=== PATIENT | male | born 1960 | race Caucasian/White ===

== ENCOUNTER 2024-08-18 04:08 | Observation (INO) ==
--- NOTE | 2024-08-18 04:20 | DR.EXTPAIN ---
HPI Time seen Time Seen by Provider: 08/18/24 04:19 HPI Comment HPI Comment: 64 y/o with htn and alcoholism comes in with persistently worsening lle swelling, redness and drainage x two weeks; he reports that he has been on cipro which he is reportedly taking as prescribed but hasn't seen much improv ement; some mild pain, no temperature; no acute injury. He has been shaking this morning although he says he last had a drink last night around 10 PM. PMH PMH Past Medical History: Depression, Dyslipidemia, Hypertension and Hypothyroidism Past Surgical History: Yes Surgical History: Abdominal Surgery and Tonsillectomy Family History Family Medical History: [place] Social History Do you use any recreational Drugs:: No ROS Review of Systems Constitutional: No Symptoms Reported Eyes: No Symptoms Reported ENTM: No Symptoms Reported Respiratoy: No Symptoms Reported Cardiovascular: No Symptoms Reported Gastrointestinal/Abdominal: No Symptoms Reported Genitourinary: No Symptoms Reported Neurological: See HPI Musculoskeletal: See HPI Integumentary: No Symptoms Reported Hematologic/Lymphatic: No Symptoms Reported Endocrine: No Symptoms Reported Psychiatric: No Symptoms Reported PE Vital Signs Vitals: Vital Signs Temperature 98.4 F Pulse Rate 114 Pulse Rate 113 Pulse Rate 123 Pulse Rate 111 Pulse Rate 109 Pulse Rate 109 Pulse Rate 143 Pulse Rate 112 Pulse Rate 122 Respiratory Rate 20 Respiratory Rate 26 Respiratory Rate 26 Respiratory Rate 22 Respiratory Rate 18 Respiratory Rate 31 Respiratory Rate 22 Blood Pressure 187/88 Blood Pressure 180/109 Blood Pressure 195/98 Blood Pressure 168/97 Blood Pressure 191/105 O2 Sat by Pulse Oximetry 98 O2 Sat by Pulse Oximetry 95 O2 Sat by Pulse Oximetry 96 O2 Sat by Pulse Oximetry 95 O2 Sat by Pulse Oximetry 95 O2 Sat by Pulse Oximetry 93 O2 Sat by Pulse Oximetry 93 General Limitations: No Limitations General Appearance: Alert and In No Apparent Distress Head Head Exam: Normal Inspection Eyes Eye exam: Normal Appearance ENT ENT Exam: Normal Exam Neck Neck Exam: Normal Inspection Chest Chest Inspection: Normal Inspection Respiratory Respiratory Exam: Normal Lung Sounds Bilat Cardiovascular Cardiovascular Exam: Regular Rate and Normal Rhythm Abdominal Exam Abdominal Exam: Normal Inspection, Normal Bowel Sounds and Soft Extremities Extremities Exam: Normal Inspection Back Back Exam: Normal Inspection Neurological Neurological Exam: Alert, Oriented X3 and CN II-XII Intact Psychiatric Psychiatric Exam: Normal Affect, Normal Mood and Other (shaking rue greater than lue, speech clear, good eye contact) Skin Skin Exam: Warm, Dry, Intact and Normal Color COURSE Reevaluation 1st: Worsened (Pt more confused, shaking, up putting clothing on; leg seems redder w/extension.) Consultation Call Returned: 06:55 (Dr Patrick accepts admission.) ROR Labs Reviewed Laboratory Results Reviewed?: Yes 08/18/24 04:30 08/18/24 04:30 Laboratory: WBC 6.3 X10^3/uL (3.6-10.0) 08/18/24 04:30 RBC 4.68 X10^6/uL (4.7-6.0) L 08/18/24 04:30 Hgb 15.3 g/dL (13.5-18.0) 08/18/24 04:30 Hct 43.4 % (42.0-54.0) 08/18/24 04:30 MCV 92.8 fL (80.0-100.0) 08/18/24 04:30 MCH 32.8 pg (27.0-34.0) 08/18/24 04:30 MCHC 35.3 g/dL (33.0-35.0) H 08/18/24 04:30 RDW 14.5 % (11.6-16.5) 08/18/24 04:30 Plt Count 158 X10^3/uL (150.0-450.0) 08/18/24 04:30 MPV 8.3 fL (7.4-11.0) 08/18/24 04:30 Neut % (Auto) 74.0 % (42.0-75.0) 08/18/24 04:30 Lymph % (Auto) 9.8 % (21.0-51.0) L 08/18/24 04:30 [place] % (Auto) 12.2 % (0.0-13.0) 08/18/24 04:30 Eos % (Auto) 1.0 % (0.9-2.9) 08/18/24 04:30 Baso % (Auto) 3.0 % (0.2-1.0) H 08/18/24 04:30 Neut # (Auto) 4.7 x10^3/uL (2.2-4.8) 08/18/24 04:30 Lymph # (Auto) 0.6 X10^3/uL (1.3-2.9) L 08/18/24 04:30 [place] # (Auto) 0.8 x10^3/uL (0.3-0.8) 08/18/24 04:30 Eos # (Auto) 0.1 x10^3/uL (0.0-0.2) 08/18/24 04:30 Baso # (Auto) 0.2 X10^3/uL (0.0-0.1) H 08/18/24 04:30 Absolute Nucleated RBC 0.1 /100WBC 08/18/24 04:30 ESR 42 MM/HOUR (0-15) H 08/18/24 04:30 Sodium 139 mmol/L (136-145) 08/18/24 04:30 Corrected Sodium TNP 08/18/24 04:30 Potassium 3.8 mmol/L (3.5-5.1) 08/18/24 04:30 Chloride 100 mmol/L (98-107) 08/18/24 04:30 Carbon Dioxide 26.6 mmol/L (21-32) 08/18/24 04:30 BUN 19 mg/dL (7-18) H 08/18/24 04:30 Creatinine 1.16 mg/dL (0.70-1.30) 08/18/24 04:30 Est GFR (MDRD) Af Amer > 60 (>60) 08/18/24 04:30 Est GFR (MDRD) Non-Af > 60 (>60) 08/18/24 04:30 Glucose 101 mg/dL (65-99) H 08/18/24 04:30 Calcium 9.6 mg/dL (8.5-10.1) 08/18/24 04:30 Corrected Calcium TNP 08/18/24 04:30 Total Bilirubin 0.90 mg/dL (0.2-1.0) 08/18/24 04:30 AST 43 Units/L (15-37) H 08/18/24 04:30 ALT 33 Units/L (12-78) 08/18/24 04:30 Alkaline Phosphatase 97 Units/L (46-116) 08/18/24 04:30 Total Protein 8.1 g/dL (6.4-8.2) 08/18/24 04:30 Albumin 3.7 g/dL (3.4-5.0) 08/18/24 04:30 Globulin 4.4 g/dL (2.5-4.5) 08/18/24 04:30 Albumin/Globulin Ratio 0.8 Ratio (1.1-2.1) L 08/18/24 04:30 Other Results Comments: 64 y/o alcoholic failed outpt treatment of cellulitis; admit and continue vancomycin as well as CIWA protocol. XRAY XRAY Interpreted by: Radiologist X-ray Results: ct le: 1. Moderate subcutaneous fat stranding could be related to edema or inflammation with no abscess or necrotizing fasciitis. 2. No significant bony abnormality. us: No evidence of DVT. Opioid Opioid Risk Tool Age (Jean box if 16-45): No History of Preadolescent Sexual Abuse: No Total: 0 Total Score Risk Category: Low Risk Copyright: Jesse SCHWARZ predicting aberrant behaviors Discharge Plan Diagnosis Discharge Problem: Cellulitis of left lower extremity Alcohol withdrawal Qualifiers: Complication of substance-induced condition: uncomplicated Qualified Code(s): F10.930 - Alcohol use, unspecified with withdrawal, uncomplicated Discharge Plan Patient Disposition: 09 ADMITTED INPATIENT Condition: Stable Prescriptions: No Action ciprofloxacin HCl 750 mg tablet 750 mg PO BID metoprolol succinate 50 mg tablet extended release 24 hr 50 mg PO QAM levothyroxine 200 mcg tablet 1 tab PO QDAY Health Concerns: Post Hospitalization: new medications and changes needed to prevent readmission or further decline. Pt educated and given instructions on all concerns. Plan of Treatment: Continue with present treatment and follow up plan. Pt is to keep follow up appointment as instructed and take medications as ordered. Follow ups/Referrals Follow ups/Referrals: N[facility],None [Primary Care Provider] - 3 days
[2024-08-18] MEDS: LIBRIUM PO ONE (04:31)
[2024-08-18] MEDS: VANCOMYCIN IV *PREMIX 1 G/200 ML BAG 1 G/200 ML PIGGYBACK IV SCH ×2 (04:42→10:13)
[2024-08-18 04:53] LABS: BASOPHILS # (AUTO) 0.2 X10^3/uL (0.0-0.1); EOSINOPHILS # (AUTO) 0.1 x10^3/uL (0.0-0.2); HEMATOCRIT 43.4 % (42.0-54.0); HEMOGLOBIN 15.3 g/dL (13.5-18.0); LYMPHOCYTES # (AUTO) 0.6 X10^3/uL (1.3-2.9); LYMPHOCYTES % (AUTO) 9.8 % (21.0-51.0); MEAN CORPUSCULAR HEMOGLOBIN 32.8 pg (27.0-34.0); MEAN CORPUSCULAR HGB CONC 35.3 g/dL (33.0-35.0); MEAN CORPUSCULAR VOLUME 92.8 fL (80.0-100.0); MEAN PLATELET VOLUME 8.3 fL (7.4-11.0); MONOCYTES # (AUTO) 0.8 x10^3/uL (0.3-0.8); MONOCYTES % (AUTO) 12.2 % (0.0-13.0); NEUTROPHILS # (AUTO) 4.7 x10^3/uL (2.2-4.8); PLATELET COUNT 158 X10^3/uL (150.0-450.0); RED BLOOD COUNT 4.68 X10^6/uL (4.7-6.0); RED CELL DISTRIBUTION WIDTH 14.5 % (11.6-16.5); WHITE BLOOD COUNT 6.3 X10^3/uL (3.6-10.0)
[2024-08-18 05:02] LABS: ALANINE AMINOTRANSFERASE 33 Units/L (12-78); ALBUMIN 3.7 g/dL (3.4-5.0); ALKALINE PHOSPHATASE 97 Units/L (46-116); ASPARTATE AMINO TRANSFERASE 43 Units/L (15-37); BLOOD UREA NITROGEN 19 mg/dL (7-18); CALCIUM 9.6 mg/dL (8.5-10.1); CARBON DIOXIDE 26.6 mmol/L (21-32); CHLORIDE 100 mmol/L (98-107); CREATININE 1.16 mg/dL (0.70-1.30); GLUCOSE 101 mg/dL (65-99); POTASSIUM 3.8 mmol/L (3.5-5.1); SODIUM 139 mmol/L (136-145); TOTAL PROTEIN 8.1 g/dL (6.4-8.2); eGFR NON BLACK RACES > 60 (>60)
[2024-08-18 05:05] LABS: ERYTHROCYTE SEDIMENTATION RATE 42 MM/HOUR (0-15)
--- NOTE | 2024-08-18 05:47 | CT ---
PROCEDURE: CT Left lower extremity without IV Contrast.HISTORY: PATIENT C/O LEFT LOWER LEG SWELLING AND PAIN. PATIENT HAS BEEN ON PO CIPRO SINCE 08/05/24. NOTED PATIENT TO HAVE MULTIPLE OPEN WOUNDS TO LLE AND REDNESS AND SWELLING. ; HTN SX: ABD SURG, TONSILS .TECHNIQUE: Axial images were performed through the left lower extremity from proximal to mid tibia just below the ankle joint without the administration of IV contrast with multiplanar reformations . Dose reduction techniques including Automated Exposure Control (AEC) and adjustment of mA and kV were utilized .COMPARISON: None.TECHNICAL QUALITY: Satisfactory.FINDINGS:No bony fracture or dislocation.No bony destruction or periosteal reaction.Normal bone density.Moderate subcutaneous fat stranding diffusely could be related to edema or inflammation extending over the dorsum of the foot. No loculated fluid collection suggesting abscess or soft tissue air suggesting necrotizing fasciitis.Muscle compartments are unremarkable with no fluid collections.IMPRESSION:1. Moderate subcutaneous fat stranding could be related to edema or inflammation with no abscess or necrotizing fasciitis.2. No significant bony abnormality.THIS IS AN ELECTRONICALLY VERIFIED FINAL REPORT08/18/2024 5:31 AM - Electronically signed by Jv Gomes MD
--- NOTE | 2024-08-18 06:13 | VAS ---
EXAM:LOWER EXT VENOUS, UNILATERALHISTORY:swelling, redness; LEG INFECTIONCOMPARISON:None.TECHNIQUE:Multi ple vallecillo scale and color flow Doppler images of the deep venous system were obtained of the left lower extremity.FINDINGS:The deep venous system of the left lower extremity was evaluated from the level of the common femoral vein through the popliteal vein. Images demonstrate normal compression, augmentation, and color flow throughout the visualized deep venous system.IMPRESSION:No evidence of DVT.THIS IS AN ELECTRONICALLY VERIFIED FINAL REPORT08/18/2024 6:10 AM - Electronically signed by Kyler Escamilla MD
[2024-08-18] MEDS ORDERED: CONSULT PHARMACY - POTASSIUM & MAGNESIUM XX SCH (07:00)
[2024-08-18] MEDS: NS 1,000 ML IV 1,000 ML IV SCH (08:35)
[2024-08-18] MEDS: NS 1,000 ML IV 1,000 ML with MAGNESIUM SULFATE 50% INJ VIAL 1 G, MVI INJ (ADULT) 10 ML IV SCH (08:55)
[2024-08-18] MEDS: PHENOBARBITAL SODIUM INJ 65 MG VIAL IVP PRN (08:55)
[2024-08-18] MEDS: ZOFRAN INJ 4 MG VIAL IVP PRN (08:56)
[2024-08-18] MEDS: CATAPRES TAB 0.1 MG PO ONE (08:56)
--- NOTE | 2024-08-18 09:01 | EKG ---
Test Reason : hypertension Blood Pressure : */* mmHG Vent. Rate : 112 BPM Atrial Rate : 112 BPM P-R Int : 190 ms QRS Dur : 74 ms QT Int : 304 ms P-R-T Axes : 33 -2 5 degrees QTc Int : 414 ms Sinus tachycardia Baseline wander /artifact Low voltage QRS Possible Inferior infarct (cited on or before 23-MAR-2022) Anterolateral infarct (cited on or before 23-MAR-2022) Abnormal ECG When compared with ECG of 2023: only change is baseline artifact Confirmed by Reinaldo Ghosh MD ([id number]) on 08/18/2024 9:50:04 AM Referred By: Confirmed By: Reinaldo Ghosh MD
[2024-08-18] MEDS ORDERED: PHARMACY CONSULT - VANCOMYCIN XX SCH (10:00)
--- NOTE | 2024-08-18 10:15 | DR.H&P ---
H&P History & Physical for Day of: H&P Date: 08/18/24 Chief Complaint Chief Complaint: bilateral leg swelling, redness History of Present Illness History of Present Illness: Mr. Castillo is a 64-year-old male with a past medical history of hypertension, hyperlipidemia, hypothyroidism and alcohol use presented with worsening bilateral leg redness and swelling. He states he has had the symptoms for over 2 weeks and was taking ciprofloxacin. He states his leg look worse now and have been draining. ER workup showed normal WBC, ultrasound was negative for DVT, CT leg showed subcutaneous edema/inflammation, no abscess or concern for necrotizing fasciitis. He was started on IV vancomycin and detox protocol. Patient does have tremors on exam and his blood pressure is elevated. He was given phenobarbital and zofran. He has been started on banana bag. He is also on the HTN protocol. He also reports having a bruise in his right chest area. He does not recall when he had a fall. He has a extensive history of alcohol use, last drink was yesterday. He denies having any seizures or being on the ventilator. Labs/imaging reviewed: - WBC 6.3 hemoglobin 15 potassium 3.8 creatinine 1.16 - Ultrasound negative for DVT - CT lower extremity reviewed Plan: Continue IV vancomycin, collect wound culture. Will also add clindamycin. Keep leg elevated. Pain control as needed. Continue hydration with banana bag. Continue detox protocol. Check mag. Add Ativan as needed. Monitor blood pressure. Continue hypertension protocol. Order chest x-ray. Resume home medications. Replace electrolytes as per protocol. Monitor a.m. labs and imaging. Time spent for clinical assessment, reviewing labs/imaging, physical exam, decision making and documentation greater than 45 mins. Past Medical History Past Medical History: Depression, Dyslipidemia, Hypertension and Hypothyroidism Past Surgical History Surgical History: Abdominal Surgery and Tonsillectomy Family History Family Medical History: [place] Social History Does any household member use tobacco: No Alcohol Use: Heavy and DAILY Medications Home Medications: Home Medications Medication Instructions Recorded Confirmed Type levothyroxine 200 mcg tablet 1 tab PO QDAY 03/23/22 08/18/24 History ciprofloxacin HCl 750 mg tablet 750 mg PO BID 08/18/24 08/18/24 History metoprolol succinate 50 mg 50 mg PO QAM 08/18/24 08/18/24 History tablet,extended release 24 hr Allergies Allergies Allergy/AdvReac Type Severity Reaction Status Date / Time No Known Drug Allergies Allergy Verified 01/18/24 21:52 Labs 08/18/24 04:30 08/18/24 04:30 Labs: Laboratory WBC 6.3 X10^3/uL (3.6-10.0) 08/18/24 04:30 RBC 4.68 X10^6/uL (4.7-6.0) L 08/18/24 04:30 Hgb 15.3 g/dL (13.5-18.0) 08/18/24 04:30 Hct 43.4 % (42.0-54.0) 08/18/24 04:30 MCV 92.8 fL (80.0-100.0) 08/18/24 04:30 MCH 32.8 pg (27.0-34.0) 08/18/24 04:30 MCHC 35.3 g/dL (33.0-35.0) H 08/18/24 04:30 RDW 14.5 % (11.6-16.5) 08/18/24 04:30 Plt Count 158 X10^3/uL (150.0-450.0) 08/18/24 04:30 MPV 8.3 fL (7.4-11.0) 08/18/24 04:30 Neut % (Auto) 74.0 % (42.0-75.0) 08/18/24 04:30 Lymph % (Auto) 9.8 % (21.0-51.0) L 08/18/24 04:30 [place] % (Auto) 12.2 % (0.0-13.0) 08/18/24 04:30 Eos % (Auto) 1.0 % (0.9-2.9) 08/18/24 04:30 Baso % (Auto) 3.0 % (0.2-1.0) H 08/18/24 04:30 Neut # (Auto) 4.7 x10^3/uL (2.2-4.8) 08/18/24 04:30 Lymph # (Auto) 0.6 X10^3/uL (1.3-2.9) L 08/18/24 04:30 [place] # (Auto) 0.8 x10^3/uL (0.3-0.8) 08/18/24 04:30 Eos # (Auto) 0.1 x10^3/uL (0.0-0.2) 08/18/24 04:30 Baso # (Auto) 0.2 X10^3/uL (0.0-0.1) H 08/18/24 04:30 Absolute Nucleated RBC 0.1 /100WBC 08/18/24 04:30 ESR 42 MM/HOUR (0-15) H 08/18/24 04:30 Sodium 139 mmol/L (136-145) 08/18/24 04:30 Corrected Sodium TNP 08/18/24 04:30 Potassium 3.8 mmol/L (3.5-5.1) 08/18/24 04:30 Chloride 100 mmol/L (98-107) 08/18/24 04:30 Carbon Dioxide 26.6 mmol/L (21-32) 08/18/24 04:30 BUN 19 mg/dL (7-18) H 08/18/24 04:30 Creatinine 1.16 mg/dL (0.70-1.30) 08/18/24 04:30 Est GFR (MDRD) Af Amer > 60 (>60) 08/18/24 04:30 Est GFR (MDRD) Non-Af > 60 (>60) 08/18/24 04:30 Glucose 101 mg/dL (65-99) H 08/18/24 04:30 Calcium 9.6 mg/dL (8.5-10.1) 08/18/24 04:30 Corrected Calcium TNP 08/18/24 04:30 Total Bilirubin 0.90 mg/dL (0.2-1.0) 08/18/24 04:30 AST 43 Units/L (15-37) H 08/18/24 04:30 ALT 33 Units/L (12-78) 08/18/24 04:30 Alkaline Phosphatase 97 Units/L (46-116) 08/18/24 04:30 Total Protein 8.1 g/dL (6.4-8.2) 08/18/24 04:30 Albumin 3.7 g/dL (3.4-5.0) 08/18/24 04:30 Globulin 4.4 g/dL (2.5-4.5) 08/18/24 04:30 Albumin/Globulin Ratio 0.8 Ratio (1.1-2.1) L 08/18/24 04:30 Review of Systems Constitutional: Weakness Eyes: No Symptoms Reported ENT: No Symptoms Reported Respiratory: Shortness of Breath Cardiovascular: No Symptoms Reported Gastrointestinal: No Symptoms Reported Genitourinary: No Symptoms Reported Musculoskeletal: Leg Pain Skin: Rash and Wound Neurological: No Symptoms Reported Physical Exam Vital Signs: Vital Signs Temperature 98.4 F Pulse Rate 116 Pulse Rate 125 Pulse Rate 122 Pulse Rate 109 Pulse Rate 114 Pulse Rate 113 Pulse Rate 123 Pulse Rate 111 Pulse Rate 109 Pulse Rate 109 Pulse Rate 143 Pulse Rate 112 Pulse Rate 122 Respiratory Rate 20 Respiratory Rate 20 Respiratory Rate 33 Respiratory Rate 37 Respiratory Rate 32 Respiratory Rate 26 Respiratory Rate 26 Respiratory Rate 22 Respiratory Rate 18 Respiratory Rate 31 Respiratory Rate 22 Blood Pressure 187/88 Blood Pressure 187/88 Blood Pressure 180/109 Blood Pressure 195/98 Blood Pressure 168/97 Blood Pressure 191/105 O2 Sat by Pulse Oximetry 98 O2 Sat by Pulse Oximetry 95 O2 Sat by Pulse Oximetry 96 O2 Sat by Pulse Oximetry 95 O2 Sat by Pulse Oximetry 95 O2 Sat by Pulse Oximetry 93 O2 Sat by Pulse Oximetry 93 Oriented: Normal Eyes: Normal Throat: Dry Respiratory: Clear Throughout Cardiovascular: Tachycardia Auscultation: Bowel Sounds: Normal Palpation: Normal Tenderness: Normal Skin: Rash, Red, Tender and Wound (b/l LE erythema with some blistering, drai nage, warm) Musculoskeletal: Leg, Tender and Motor Deficit Psychiatric: Normal Mood Description: Calm Affect: Normal Speech Pattern: Clear and Appropriate Assessment/Plan (1) Cellulitis of both lower extremities: Status: Acute (2) Alcohol intoxication: Qualifiers: Complication of substance-induced condition: with unspecified complication Qualified Code(s): F10.929 - Alcohol use, unspecified with intoxication, unspecified Status: Chronic (3) Frequent falls: Status: Acute (4) Lumbar degenerative disc disease: Qualifiers: Disc-related pain type: unspecified whether pain present Qualified Code(s): M51.369 - Other intervertebral disc degeneration, lumbar region without mention of lumbar back pain or lower extremity pain Status: Chronic (5) Chronic alcoholic liver disease: Status: Chronic (6) Acquired hypothyroidism: Status: Chronic (7) Essential (primary) hypertension: Status: Chronic Review H&P Reviewed: Yes Patient was examined?: Yes
[2024-08-18] MEDS: TOPROL XL PO SCH (10:29)
[2024-08-18] MEDS: SYNTHROID 100 mcg TAB PO SCH (10:29)
[2024-08-18] MEDS: NORMODYNE INJ 20 MG VIAL IV PRN (10:54)
[2024-08-18] MEDS: APRESOLINE INJ 20 MG VIAL IVP PRN (11:58)
[2024-08-18] MEDS: CLEOCIN 300 MG IV PREMIX 300 MG/50 ML BAG IV SCH (14:36)
[2024-08-18] MEDS: LIBRIUM PO PRN (14:36)
[2024-08-18 15:39] VITALS: BMI 37.8
[2024-08-18] MEDS: MAALOX or MYLANTA PO PRN (15:45)
[2024-08-18] MEDS: NORCO 5/325 MG TAB PO PRN (17:15)
--- NOTE | 2024-08-18 17:21 | RAD ---
EXAM: CHEST, 1 VIEW HISTORY: COUGH; HTN, ABD SURG, TONSILS COMPARISON: No relevant prior studies were available for comparison at the time of interpretation. TECHNIQUE: CHEST, 1 VIEW FINDINGS: Chest: Lines and tubes: None Mediastinum: Cardiomegaly. Pulmonary vessels: No pulmonary vascular congestion. Lung quintero: No suspicious airspace opacity. Pleura: No effusion. No pneumothorax. Bones and soft tissues: No acute osseous or soft tissue abnormality. IMPRESSION: 1. No acute cardiopulmonary abnormality THIS IS AN ELECTRONICALLY VERIFIED FINAL REPORT 08/18/2024 5:18 PM - Electronically signed by Rock Glover MD
[2024-08-18] MEDS: ATIVAN TAB 1 MG PO PRN (19:52)
[2024-08-18] MEDS: PHARMACY COMMENT IV ONE (21:58)
[2024-08-19 05:54] LABS: BASOPHILS % (AUTO) 0.8 % (0.2-1.0); EOSINOPHILS # (AUTO) 0.1 x10^3/uL (0.0-0.2); EOSINOPHILS % (AUTO) 2.6 % (0.9-2.9); HEMATOCRIT 40.1 % (42.0-54.0); HEMOGLOBIN 14.1 g/dL (13.5-18.0); LYMPHOCYTES # (AUTO) 0.5 X10^3/uL (1.3-2.9); LYMPHOCYTES % (AUTO) 16.4 % (21.0-51.0); MEAN CORPUSCULAR HEMOGLOBIN 32.7 pg (27.0-34.0); MEAN CORPUSCULAR HGB CONC 35.1 g/dL (33.0-35.0); MEAN CORPUSCULAR VOLUME 93.2 fL (80.0-100.0); MEAN PLATELET VOLUME 9.1 fL (7.4-11.0); MONOCYTES # (AUTO) 0.3 x10^3/uL (0.3-0.8); MONOCYTES % (AUTO) 9.3 % (0.0-13.0); NEUTROPHILS # (AUTO) 2.1 x10^3/uL (2.2-4.8); NEUTROPHILS % (AUTO) 70.9 % (42.0-75.0); PLATELET COUNT 51 X10^3/uL (150.0-450.0); RED BLOOD COUNT 4.31 X10^6/uL (4.7-6.0)
[2024-08-19 06:08] LABS: ALANINE AMINOTRANSFERASE 33 Units/L (12-78); ALBUMIN 3.1 g/dL (3.4-5.0); ALKALINE PHOSPHATASE 82 Units/L (46-116); ASPARTATE AMINO TRANSFERASE 43 Units/L (15-37); BLOOD UREA NITROGEN 13 mg/dL (7-18); CALCIUM 9.1 mg/dL (8.5-10.1); CARBON DIOXIDE 28.7 mmol/L (21-32); CHLORIDE 97 mmol/L (98-107); COR CA(FOR HYPOALB) 9.8 mg/dL (8.5-10.1); CREATININE 0.98 mg/dL (0.70-1.30); GLUCOSE 101 mg/dL (65-99); MAGNESIUM 1.5 mg/dL (2.0-2.9); POTASSIUM 3.7 mmol/L (3.5-5.1); SODIUM 134 mmol/L (136-145); TOTAL PROTEIN 7.1 g/dL (6.4-8.2); eGFR NON BLACK RACES > 60 (>60)
[2024-08-19] MEDS ORDERED: CONSULT PHARMACY - POTASSIUM & MAGNESIUM XX SCH ×2 (07:00→19:00)
[2024-08-19] MEDS ORDERED: MAG-OX TAB PO SCH (09:00)
[2024-08-19] MEDS: NS IV SCH (09:52)
[2024-08-19] MEDS: MVI IV SCH (09:52)
[2024-08-19] MEDS: K-DUR TAB 20 MEQ PO SCH (09:52)
[2024-08-19] MEDS: MAGNESIUM SULFATE IV SCH (09:52)
[2024-08-19 16:17] LABS: BASOPHILS % (AUTO) 1.2 % (0.2-1.0); EOSINOPHILS # (AUTO) 0.1 x10^3/uL (0.0-0.2); EOSINOPHILS % (AUTO) 2.9 % (0.9-2.9); HEMATOCRIT 39.8 % (42.0-54.0); HEMOGLOBIN 13.8 g/dL (13.5-18.0); LYMPHOCYTES # (AUTO) 0.3 X10^3/uL (1.3-2.9); LYMPHOCYTES % (AUTO) 9.3 % (21.0-51.0); MEAN CORPUSCULAR HEMOGLOBIN 32.8 pg (27.0-34.0); MEAN CORPUSCULAR HGB CONC 34.8 g/dL (33.0-35.0); MEAN CORPUSCULAR VOLUME 94.2 fL (80.0-100.0); MONOCYTES # (AUTO) 0.3 x10^3/uL (0.3-0.8); MONOCYTES % (AUTO) 8.8 % (0.0-13.0); NEUTROPHILS # (AUTO) 2.7 x10^3/uL (2.2-4.8); NEUTROPHILS % (AUTO) 77.8 % (42.0-75.0); PLATELET COUNT 35 X10^3/uL (150.0-450.0); RED BLOOD COUNT 4.23 X10^6/uL (4.7-6.0); RED CELL DISTRIBUTION WIDTH 14.1 % (11.6-16.5); WHITE BLOOD COUNT 3.4 X10^3/uL (3.6-10.0)
[2024-08-20 04:43] LABS: BASOPHILS % (AUTO) 0.7 % (0.2-1.0); EOSINOPHILS # (AUTO) 0.1 x10^3/uL (0.0-0.2); HEMATOCRIT 39.1 % (42.0-54.0); HEMOGLOBIN 13.7 g/dL (13.5-18.0); LYMPHOCYTES # (AUTO) 0.4 X10^3/uL (1.3-2.9); LYMPHOCYTES % (AUTO) 10.5 % (21.0-51.0); MEAN CORPUSCULAR HEMOGLOBIN 32.7 pg (27.0-34.0); MEAN CORPUSCULAR VOLUME 93.5 fL (80.0-100.0); MEAN PLATELET VOLUME 9.1 fL (7.4-11.0); MONOCYTES # (AUTO) 0.3 x10^3/uL (0.3-0.8); MONOCYTES % (AUTO) 9.6 % (0.0-13.0); NEUTROPHILS # (AUTO) 2.8 x10^3/uL (2.2-4.8); NEUTROPHILS % (AUTO) 76.2 % (42.0-75.0); PLATELET COUNT 25 X10^3/uL (150.0-450.0); RED BLOOD COUNT 4.18 X10^6/uL (4.7-6.0); RED CELL DISTRIBUTION WIDTH 14.1 % (11.6-16.5); WHITE BLOOD COUNT 3.6 X10^3/uL (3.6-10.0)
[2024-08-20 05:04] LABS: ALANINE AMINOTRANSFERASE 37 Units/L (12-78); ALBUMIN 3.2 g/dL (3.4-5.0); ALKALINE PHOSPHATASE 87 Units/L (46-116); ASPARTATE AMINO TRANSFERASE 51 Units/L (15-37); BLOOD UREA NITROGEN 11 mg/dL (7-18); CARBON DIOXIDE 27.3 mmol/L (21-32); CHLORIDE 98 mmol/L (98-107); COR CA(FOR HYPOALB) 9.6 mg/dL (8.5-10.1); GLUCOSE 91 mg/dL (65-99); MAGNESIUM 2.1 mg/dL (2.0-2.9); POTASSIUM 3.9 mmol/L (3.5-5.1); SODIUM 135 mmol/L (136-145); TOTAL PROTEIN 7.3 g/dL (6.4-8.2); eGFR NON BLACK RACES > 60 (>60)
[2024-08-20] MEDS: ZYVOX 600MG IV 600 MG/300 ML BAG IV SCH (10:48)
[2024-08-20] MEDS: PREDNISONE TAB 20 MG PO ONE (10:48)
[2024-08-20] MEDS: NS IV SCH (14:58)
[2024-08-20] MEDS: MAGNESIUM SULFATE IV SCH (14:58)
[2024-08-20] MEDS: MVI IV SCH (14:58)
[2024-08-20 16:08] LABS: BASOPHILS % (AUTO) 0.9 % (0.2-1.0); EOSINOPHILS % (AUTO) 0.4 % (0.9-2.9); HEMATOCRIT 39.8 % (42.0-54.0); HEMOGLOBIN 13.9 g/dL (13.5-18.0); LYMPHOCYTES # (AUTO) 0.2 X10^3/uL (1.3-2.9); LYMPHOCYTES % (AUTO) 7.2 % (21.0-51.0); MEAN CORPUSCULAR HEMOGLOBIN 32.7 pg (27.0-34.0); MEAN CORPUSCULAR HGB CONC 35.1 g/dL (33.0-35.0); MEAN CORPUSCULAR VOLUME 93.2 fL (80.0-100.0); MEAN PLATELET VOLUME 9.8 fL (7.4-11.0); MONOCYTES # (AUTO) 0.1 x10^3/uL (0.3-0.8); NEUTROPHILS % (AUTO) 87.5 % (42.0-75.0); PLATELET COUNT 25 X10^3/uL (150.0-450.0); RED BLOOD COUNT 4.26 X10^6/uL (4.7-6.0); RED CELL DISTRIBUTION WIDTH 13.9 % (11.6-16.5); WHITE BLOOD COUNT 3.4 X10^3/uL (3.6-10.0)
--- NOTE | 2024-08-20 16:14 | EKG ---
Test Reason : BP 188/101 Blood Pressure : */* mmHG Vent. Rate : 64 BPM Atrial Rate : 64 BPM P-R Int : 196 ms QRS Dur : 76 ms QT Int : 424 ms P-R-T Axes : 23 -7 10 degrees QTc Int : 437 ms Poor data quality, interpretation may be adversely affected Sinus rhythm with occasional premature ventricular complexes Low voltage QRS Inferior infarct (cited on or before 23-MAR-2022) Cannot rule out Anterior infarct (cited on or before 23-MAR-2022) Abnormal ECG When compared with ECG of 18-AUG-2024 08:42, premature ventricular complexes are now present Vent. rate has decreased BY 48 BPM Confirmed by Reinaldo Ghosh MD ([id number]) on 08/20/2024 4:35:51 PM Referred By: Confirmed By: Reinaldo Ghosh MD
[2024-08-20] MEDS: CATAPRES TAB 0.1 MG PO ONE (16:32)
[2024-08-20] MEDS: PREDNISONE TAB 20 MG PO SCH (16:32)
[2024-08-20] MEDS: APRESOLINE INJ 20 MG VIAL IVP ONE (17:51)
--- NOTE | 2024-08-20 22:54 | PCM.PROG ---
Progress Note Progress Note for Day of Date of Exam: 08/19/24 Subjective Subjective: Patient is a 64-year-old male with a past medical history of hypertension, hyperlipidemia, hypothyroidism and alcohol use admitted for bilateral lower extremity cellulitis and alcohol withdrawal. This morning he is resting comfortably in bed. He appears to be much more alert this morning c ompared to yesterday as per records. No acute events overnight. Labs/imaging: WBC 3, hemoglobin 14.1, platelets 51, sodium 134, potassium 3.7, creatinine 0.98, glucose 101, magnesium 1.5, AST 43, ALT 33, alk phos 82, wound/blood cultures pending. Patient currently receiving treatment with vancomycin and clindamycin. Will continue with current treatments and repeat CBC due to thrombocytopenia in the afternoon. Replete electrolytes per protocol. Erythema appears to be subsiding from margins. Otherwise, we will continue with current treatment plan. Continue closely monitor and follow-up labs/imaging. Past Medical Family Social History Allergies: Allergies No Known Drug Allergies Allergy (Verified 01/18/24 21:52) Review of Systems ROS changes noted: see HPI Vital Signs and I&O's Vital Signs: Vital Signs Temperature 97.4 F Temperature 98.3 F Pulse Rate [Radial] 73 Pulse Rate [Radial] 70 Respiratory Rate 20 Respiratory Rate 22 Blood Pressure [Left Arm] 157/82 Blood Pressure [Left Arm] 143/77 Blood Pressure [Left Arm] 185/93 Blood Pressure [Left Arm] 185/100 Blood Pressure [Left Arm] 188/101 O2 Sat by Pulse Oximetry 97 O2 Sat by Pulse Oximetry 94 Intake and Output: Intake & Output 08/17/24 08/18/24 08/19/24 08/20/24 23:59 23:59 23:59 23:59 Intake Total 1538 / 1538 2574 / 3281 3228 / 3228 Output Total 200 / 200 2125 / 2125 1450 / 1450 Balance 1338 / 1338 449 / 1156 1778 / 1778 Physical Exam Oriented: Normal Eyes: Normal Throat: Dry Respiratory: Normal Cardiovascular: Tachycardia Auscultation: Bowel Sounds: Normal Tenderness: Normal Skin: Rash, Red, Tender and Wound (b/l LE erythema with some blistering, drainage, warm) Musculoskeletal: Leg, Tender and Motor Deficit Psychiatric: Normal Mood Description: Calm Affect: Normal Speech Pattern: Clear and Appropriate Laboratory and Diagnostics 08/20/24:57 08/20/24 04:25 Labs: 08/18/24 04:40 Blood Blood Culture - Preliminary 08/18/24 04:30 Blood Blood Culture - Preliminary 08/18/24 09:30 Leg - Left Wound Gram Stain - Final 08/18/24 09:30 Leg - Left Wound Culture - Preliminary Laboratory WBC 3.4 X10^3/uL (3.6-10.0) L 08/20/24 15:57 RBC 4.26 X10^6/uL (4.7-6.0) L 08/20/24 15:57 Hgb 13.9 g/dL (13.5-18.0) 08/20/24 15:57 Hct 39.8 % (42.0-54.0) L 08/20/24 15:57 MCV 93.2 fL (80.0-100.0) 08/20/24 15:57 MCH 32.7 pg (27.0-34.0) 08/20/24 15:57 MCHC 35.1 g/dL (33.0-35.0) H 08/20/24 15:57 RDW 13.9 % (11.6-16.5) 08/20/24 15:57 Plt Count 25 X10^3/uL (150.0-450.0) L 08/20/24 15:57 MPV 9.8 fL (7.4-11.0) 08/20/24 15:57 Neut % (Auto) 87.5 % (42.0-75.0) H 08/20/24 15:57 Lymph % (Auto) 7.2 % (21.0-51.0) L 08/20/24 15:57 [place] % (Auto) 4.0 % (0.0-13.0) 08/20/24 15:57 Eos % (Auto) 0.4 % (0.9-2.9) L 08/20/24 15:57 Baso % (Auto) 0.9 % (0.2-1.0) 08/20/24 15:57 Neut # (Auto) 3.0 x10^3/uL (2.2-4.8) 08/20/24 15:57 Lymph # (Auto) 0.2 X10^3/uL (1.3-2.9) L 08/20/24 15:57 [place] # (Auto) 0.1 x10^3/uL (0.3-0.8) L 08/20/24 15:57 Eos # (Auto) 0.0 x10^3/uL (0.0-0.2) 08/20/24 15:57 Baso # (Auto) 0.0 X10^3/uL (0.0-0.1) 08/20/24 15:57 Absolute Nucleated RBC 0.2 /100WBC 08/20/24 15:57 ESR 42 MM/HOUR (0-15) H 08/18/24 04:30 Sodium 135 mmol/L (136-145) L 08/20/24 04:25 Corrected Sodium TNP 08/20/24 04:25 Potassium 3.9 mmol/L (3.5-5.1) 08/20/24 04:25 Chloride 98 mmol/L (98-107) 08/20/24 04:25 Carbon Dioxide 27.3 mmol/L (21-32) 08/20/24 04:25 BUN 11 mg/dL (7-18) 08/20/24 04:25 Creatinine 1.00 mg/dL (0.70-1.30) 08/20/24 04:25 Est GFR (MDRD) Af Amer > 60 (>60) 08/20/24 04:25 Est GFR (MDRD) Non-Af > 60 (>60) 08/20/24 04:25 Glucose 91 mg/dL (65-99) 08/20/24 04:25 Calcium 9.0 mg/dL (8.5-10.1) 08/20/24 04:25 Corrected Calcium 9.6 mg/dL (8.5-10.1) 08/20/24 04:25 Magnesium 2.1 mg/dL (2.0-2.9) 08/20/24 04:25 Total Bilirubin 0.90 mg/dL (0.2-1.0) 08/20/24 04:25 AST 51 Units/L (15-37) H 08/20/24 04:25 ALT 37 Units/L (12-78) 08/20/24 04:25 Alkaline Phosphatase 87 Units/L (46-116) 08/20/24 04:25 Total Protein 7.3 g/dL (6.4-8.2) 08/20/24 04:25 Albumin 3.2 g/dL (3.4-5.0) L 08/20/24 04:25 Globulin 4.1 g/dL (2.5-4.5) 08/20/24 04:25 Albumin/Globulin Ratio 0.8 Ratio (1.1-2.1) L 08/20/24 04:25 Random Vancomycin 10.5 ug/mL 08/18/24 21:33 Plan (1) Cellulitis of both lower extremities: Status: Acute (2) Alcohol intoxication: Status: Chronic Qualifiers: Complication of substance-induced condition: with unspecified complication Qualified Code(s): F10.929 - Alcohol use, unspecified with intoxication, unspecified (3) Frequent falls: Status: Acute (4) Lumbar degenerative disc disease: Status: Chronic Qualifiers: Disc-related pain type: unspecified whether pain present Qualified Code(s): M51.369 - Other intervertebral disc degeneration, lumbar region without mention of lumbar back pain or lower extremity pain (5) Chronic alcoholic liver disease: Status: Chronic (6) Acquired hypothyroidism: Status: Chronic (7) Essential (primary) hypertension: Status: Chronic
--- NOTE | 2024-08-20 22:57 | PCM.PROG ---
Progress Note Progress Note for Day of Date of Exam: 08/20/24 Subjective Subjective: Patient is a 64-year-old male with a past medical history of hypertension, hyperlipidemia, hypothyroidism and alcohol use admitted for bilateral lower extremity cellulitis and alcohol withdrawal. This morning, he reports that his symptoms continue to improve. No acute events overnight. Lab s/imaging: WBC 3.6, hemoglobin 13.7, platelets 25, sodium 135, potassium 3.9, creatinine 1.0, glucose 91, wound culture positive for gram-positive cocci, blood cultures no growth to date. Patient currently receiving treatment with vancomycin and clindamycin. Due to continued thrombocytopenia, will change vancomycin to Zyvox and start on prednisone. Replete electrolytes per protocol. Erythema appears to continue to improve and resolve subsiding from margins. Otherwise, we will continue with current treatment plan. Continue closely monitor and follow-up labs/imaging. Past Medical Family Social History Allergies: Allergies No Known Drug Allergies Allergy (Verified 01/18/24 21:52) Review of Systems ROS changes noted: see HPI Vital Signs and I&O's Vital Signs: Vital Signs Temperature 97.4 F Temperature 98.3 F Pulse Rate [Radial] 73 Pulse Rate [Radial] 70 Respiratory Rate 20 Respiratory Rate 22 Blood Pressure [Left Arm] 157/82 Blood Pressure [Left Arm] 143/77 Blood Pressure [Left Arm] 185/93 Blood Pressure [Left Arm] 185/100 Blood Pressure [Left Arm] 188/101 O2 Sat by Pulse Oximetry 97 O2 Sat by Pulse Oximetry 94 Intake and Output: Intake & Output 08/17/24 08/18/24 08/19/24 08/20/24 23:59 23:59 23:59 23:59 Intake Total 1538 / 1538 2574 / 3281 3228 / 3228 Output Total 200 / 200 2125 / 2125 1450 / 1450 Balance 1338 / 1338 449 / 1156 1778 / 1778 Physical Exam Oriented: Normal Eyes: Normal Throat: Dry Respiratory: Normal Cardiovascular: Tachycardia Auscultation: Bowel Sounds: Normal Tenderness: Normal Skin: Rash, Red, Tender and Wound (b/l LE erythema with some blistering, drainage, warm) Musculoskeletal: Leg, Tender and Motor Deficit Psychiatric: Normal Mood Description: Calm Affect: Normal Speech Pattern: Clear and Appropriate Laboratory and Diagnostics 08/20/24 15:57 08/20/24 04:25 Labs: 08/18/24 04:40 Blood Blood Culture - Preliminary 08/18/24 04:30 Blood Blood Culture - Preliminary 08/18/24 09:30 Leg - Left Wound Gram Stain - Final 08/18/24 09:30 Leg - Left Wound Culture - Preliminary Laboratory WBC 3.4 X10^3/uL (3.6-10.0) L 08/20/24 15:57 RBC 4.26 X10^6/uL (4.7-6.0) L 08/20/24 15:57 Hgb 13.9 g/dL (13.5-18.0) 08/20/24 15:57 Hct 39.8 % (42.0-54.0) L 08/20/24 15:57 MCV 93.2 fL (80.0-100.0) 08/20/24 15:57 MCH 32.7 pg (27.0-34.0) 08/20/24 15:57 MCHC 35.1 g/dL (33.0-35.0) H 08/20/24 15:57 RDW 13.9 % (11.6-16.5) 08/20/24 15:57 Plt Count 25 X10^3/uL (150.0-450.0) L 08/20/24 15:57 MPV 9.8 fL (7.4-11.0) 08/20/24 15:57 Neut % (Auto) 87.5 % (42.0-75.0) H 08/20/24 15:57 Lymph % (Auto) 7.2 % (21.0-51.0) L 08/20/24 15:57 [place] % (Auto) 4.0 % (0.0-13.0) 08/20/24 15:57 Eos % (Auto) 0.4 % (0.9-2.9) L 08/20/24 15:57 Baso % (Auto) 0.9 % (0.2-1.0) 08/20/24 15:57 Neut # (Auto) 3.0 x10^3/uL (2.2-4.8) 08/20/24 15:57 Lymph # (Auto) 0.2 X10^3/uL (1.3-2.9) L 08/20/24 15:57 [place] # (Auto) 0.1 x10^3/uL (0.3-0.8) L 08/20/24 15:57 Eos # (Auto) 0.0 x10^3/uL (0.0-0.2) 08/20/24 15:57 Baso # (Auto) 0.0 X10^3/uL (0.0-0.1) 08/20/24 15:57 Absolute Nucleated RBC 0.2 /100WBC 08/20/24 15:57 ESR 42 MM/HOUR (0-15) H 08/18/24 04:30 Sodium 135 mmol/L (136-145) L 08/20/24 04:25 Corrected Sodium TNP 08/20/24 04:25 Potassium 3.9 mmol/L (3.5-5.1) 08/20/24 04:25 Chloride 98 mmol/L (98-107) 08/20/24 04:25 Carbon Dioxide 27.3 mmol/L (21-32) 08/20/24 04:25 BUN 11 mg/dL (7-18) 08/20/24 04:25 Creatinine 1.00 mg/dL (0.70-1.30) 08/20/24 04:25 Est GFR (MDRD) Af Amer > 60 (>60) 08/20/24 04:25 Est GFR (MDRD) Non-Af > 60 (>60) 08/20/24 04:25 Glucose 91 mg/dL (65-99) 08/20/24 04:25 Calcium 9.0 mg/dL (8.5-10.1) 08/20/24 04:25 Corrected Calcium 9.6 mg/dL (8.5-10.1) 08/20/24 04:25 Magnesium 2.1 mg/dL (2.0-2.9) 08/20/24 04:25 Total Bilirubin 0.90 mg/dL (0.2-1.0) 08/20/24 04:25 AST 51 Units/L (15-37) H 08/20/24 04:25 ALT 37 Units/L (12-78) 08/20/24 04:25 Alkaline Phosphatase 87 Units/L (46-116) 08/20/24 04:25 Total Protein 7.3 g/dL (6.4-8.2) 08/20/24 04:25 Albumin 3.2 g/dL (3.4-5.0) L 08/20/24 04:25 Globulin 4.1 g/dL (2.5-4.5) 08/20/24 04:25 Albumin/Globulin Ratio 0.8 Ratio (1.1-2.1) L 08/20/24 04:25 Random Vancomycin 10.5 ug/mL 08/18/24 21:33 Plan (1) Cellulitis of both lower extremities: Status: Acute (2) Alcohol intoxication: Status: Chronic Qualifiers: Complication of substance-induced condition: with unspecified complica tion Qualified Code(s): F10.929 - Alcohol use, unspecified with intoxication, unspecified (3) Frequent falls: Status: Acute (4) Lumbar degenerative disc disease: Status: Chronic Qualifiers: Disc-related pain type: unspecified whether pain present Qualified Code(s): M51.369 - Other intervertebral disc degeneration, lumbar region without mention of lumbar back pain or lower extremity pain (5) Chronic alcoholic liver disease: Status: Chronic (6) Acquired hypothyroidism: Status: Chronic (7) Essential (primary) hypertension: Status: Chronic
[2024-08-21 06:07] LABS: BASOPHILS # (AUTO) 0.2 X10^3/uL (0.0-0.1); BASOPHILS % (AUTO) 2.6 % (0.2-1.0); HEMATOCRIT 42.8 % (42.0-54.0); HEMOGLOBIN 14.9 g/dL (13.5-18.0); LYMPHOCYTES # (AUTO) 0.4 X10^3/uL (1.3-2.9); LYMPHOCYTES % (AUTO) 6.7 % (21.0-51.0); MEAN CORPUSCULAR HEMOGLOBIN 32.4 pg (27.0-34.0); MEAN CORPUSCULAR HGB CONC 34.7 g/dL (33.0-35.0); MEAN CORPUSCULAR VOLUME 93.3 fL (80.0-100.0); MEAN PLATELET VOLUME 9.2 fL (7.4-11.0); MONOCYTES # (AUTO) 0.2 x10^3/uL (0.3-0.8); MONOCYTES % (AUTO) 4.1 % (0.0-13.0); NEUTROPHILS # (AUTO) 5.1 x10^3/uL (2.2-4.8); NEUTROPHILS % (AUTO) 86.6 % (42.0-75.0); PLATELET COUNT 35 X10^3/uL (150.0-450.0); RED BLOOD COUNT 4.59 X10^6/uL (4.7-6.0); WHITE BLOOD COUNT 5.9 X10^3/uL (3.6-10.0)
[2024-08-21 06:19] LABS: ALANINE AMINOTRANSFERASE 52 Units/L (12-78); ALBUMIN 3.6 g/dL (3.4-5.0); ALKALINE PHOSPHATASE 106 Units/L (46-116); ASPARTATE AMINO TRANSFERASE 47 Units/L (15-37); BLOOD UREA NITROGEN 12 mg/dL (7-18); CALCIUM 9.5 mg/dL (8.5-10.1); CHLORIDE 98 mmol/L (98-107); COR NA(FOR HYPERGLY) 133 mmol/L (136-145); CREATININE 0.95 mg/dL (0.70-1.30); GLUCOSE 114 mg/dL (65-99); POTASSIUM 4.1 mmol/L (3.5-5.1); SODIUM 133 mmol/L (136-145); TOTAL PROTEIN 8.3 g/dL (6.4-8.2); eGFR NON BLACK RACES > 60 (>60)
[2024-08-21 07:06] LABS: INR 1.15 (0.8-1.3)
[2024-08-21] MEDS: SILVADENE TOP SCH (08:48)
[2024-08-21] MEDS: HIBICLENS WASH EXT PRN (12:30)
--- NOTE | 2024-08-21 12:51 | CT ---
EXAM:ABDOMEN/PELVIS W/O CONHISTORY:hematoma to pts right upper quad;COMPARISON:01/29/2024TECHNIQUE:CT of the abdomen and pelvis obtained without IV contrast. Study limited due to lack of IV contrast. Dose reduction techniques including Automated Exposure Control (AEC) and adjustment of mA and kV were utilized.FINDINGS:The visualized portions of the lower thorax demonstrate no acute process. Coronary calcifications.No acute osseous abnormality. Multilevel degenerative changes in the visualized spine. Contusive changes overlying the anterior right upper abdomen.The liver, gallbladder, spleen, pancreas, bilateral adrenal glands, and bilateral kidneys demonstrate no acute process given lack of IV contrast. Indeterminate 2.5 cm left renal lesion.No evidence of bowel obstruction. The appendix is unremarkable. Diverticulosis without evidence of diverticulitis. Small fat containing umbilical hernia.The bladder is unremarkable. No free air or fluid. Nonaneurysmal aorta.IMPRESSION:Contusive changes overlying the anterior right upper abdomen.Diverticulosis without evidence of diverticulitis.Cholelithiasis without evidence of acute cholecystitis.Indeterminate 2.5 cm left renal lesion. Recommend nonemergent outpatient renal ultrasound for further evaluation.THIS IS AN ELECTRONICALLY VERIFIED FINAL REPORT08/21/2024 12:48 PM - Electronically signed by Kyler Escamilla MD
[2024-08-21] MEDS: NORVASC TAB 5 MG PO SCH (20:30)
[2024-08-22 05:51] LABS: BASOPHILS % (AUTO) 0.2 % (0.2-1.0); HEMATOCRIT 41.2 % (42.0-54.0); HEMOGLOBIN 14.3 g/dL (13.5-18.0); LYMPHOCYTES # (AUTO) 0.6 X10^3/uL (1.3-2.9); LYMPHOCYTES % (AUTO) 7.3 % (21.0-51.0); MEAN CORPUSCULAR HEMOGLOBIN 32.4 pg (27.0-34.0); MEAN CORPUSCULAR HGB CONC 34.7 g/dL (33.0-35.0); MEAN CORPUSCULAR VOLUME 93.4 fL (80.0-100.0); MEAN PLATELET VOLUME 9.6 fL (7.4-11.0); MONOCYTES # (AUTO) 0.5 x10^3/uL (0.3-0.8); MONOCYTES % (AUTO) 6.1 % (0.0-13.0); NEUTROPHILS # (AUTO) 6.9 x10^3/uL (2.2-4.8); NEUTROPHILS % (AUTO) 86.4 % (42.0-75.0); PLATELET COUNT 63 X10^3/uL (150.0-450.0); RED BLOOD COUNT 4.41 X10^6/uL (4.7-6.0); RED CELL DISTRIBUTION WIDTH 14.3 % (11.6-16.5)
[2024-08-22 06:03] LABS: ALANINE AMINOTRANSFERASE 51 Units/L (12-78); ALBUMIN 3.4 g/dL (3.4-5.0); ALKALINE PHOSPHATASE 98 Units/L (46-116); ASPARTATE AMINO TRANSFERASE 40 Units/L (15-37); BLOOD UREA NITROGEN 13 mg/dL (7-18); CALCIUM 9.3 mg/dL (8.5-10.1); CHLORIDE 99 mmol/L (98-107); CREATININE 0.93 mg/dL (0.70-1.30); GLUCOSE 103 mg/dL (65-99); POTASSIUM 3.7 mmol/L (3.5-5.1); SODIUM 135 mmol/L (136-145); TOTAL PROTEIN 7.7 g/dL (6.4-8.2); eGFR NON BLACK RACES > 60 (>60)
[2024-08-22] MEDS ORDERED: NS 250 ML IV 250 ML IV ONE (19:06)
[2024-08-22 19:49] VITALS: O2SAT 98
[2024-08-22] MEDS: NS 250 ML IV 250 ML IV PRN (20:06)
--- NOTE | 2024-08-23 00:01 | DR.CONSULT ---
CONSULT Consultation for Day of: Date: 08/22/24 Chief Complaint Chief Complaint: Cellulitis of lower extremit Allergies Allergies Allergy/AdvReac Type Severity Reaction Status Date / Time No Known Drug Allergies Allergy Verified 01/18/24 21:52 History of Present Illness History of Present Illness: 64-year-old male with history of hypertension hyperlipidemia hypothyroidism and alcohol use with redness and swelling of lower extremities. Patient had ultrasound negative for DVT CT scan showed subcutaneous tissue no obvious drainable pus. He has been on IV antibiotics and these have been improving. He denies diabetes. The wound originally was appear to be scratches of the legs. Past Medical History Past Medical History: Depression, Dyslipidemia, Hypertension and Hypothyroidism Past Surgical History Surgical History: Abdominal Surgery and Tonsillectomy Family History Family Medical History: [place] Social History Does patient currently use any type of tobacco product: No Type of Tobacco Use: None Does any household member use tobacco: No Alcohol Use: Heavy and DAILY Drug Use: None Medications Home Medications: No Known Drug Allergies Allergy (Verified 01/18/24 21:52) CONTINUE taking the following medications ciprofloxacin HCl 750 mg tablet 750 mg PO BID 08/18/24 [History] metoprolol succinate 50 mg tablet,extended release 24 hr 50 mg PO QAM 08/18/24 [History] Review of Systems Constitutional: See HPI Eyes: No Symptoms Reported ENT: No Symptoms Reported Respiratory: No Symptoms Reported Cardiovascular: No Symptoms Reported Gastrointestinal: No Symptoms Reported Genitourinary: No Symptoms Reported Musculoskeletal: No Symptoms Reported Skin: See HPI Neurological: No Symptoms Reported Physical Exam Vital Signs: Vital Signs Temperature 97.9 F Temperature 98.1 F Temperature 97.0 F Pulse Rate [Radial] 58 Pulse Rate [Radial] 70 Pulse Rate [Radial] 65 Respiratory Rate 18 Respiratory Rate 20 Respiratory Rate 19 Blood Pressure [Left Arm] 170/90 Blood Pressure [Left Arm] 173/96 Blood Pressure [Left Arm] 141/80 O2 Sat by Pulse Oximetry 98 O2 Sat by Pulse Oximetry 98 O2 Sat by Pulse Oximetry 96 Oriented: Normal, Time, Person and Place Eyes: Normal Ear: Normal Nose: Normal Throat: Normal Respiratory: Clear Throughout Cardiovascular: Normal and Other (all pulses intact both lower extremities) : Normal Auscultation: Bowel Sounds: Normal Palpation: Normal Tenderness: Normal Skin: Other (Multiple scratch areas of both legs, worse on the left. No obvious undrained pus. Cellulitis is improving.) Plan (1) Cellulitis of both lower extremities: Status: Acute Plan: Continue IV antibiotics. Patient should be ready to be switched over to p.o. antibiotics depending on the cultures and sensitivities. No obvious surgical intervention required. No drainable pus noted. (2) Alcohol intoxication: Status: Chronic Qualifiers: Complication of substance-induced condition: with unspecified complication Qualified Code(s): F10.929 - Alcohol use, unspecified with intoxication, unspecified (3) Frequent falls: Status: Acute (4) Lumbar degenerative disc disease: Status: Chronic Qualifiers: Disc-related pain type: unspecified whether pain present Qualified Code(s): M51.369 - Other intervertebral disc degeneration, lumbar region without mention of lumbar back pain or lower extremity pain (5) Chronic alcoholic liver disease: Status: Chronic (6) Acquired hypothyroidism: Status: Chronic (7) Essential (primary) hypertension: Status: Chronic
[2024-08-23 04:54] LABS: BASOPHILS % (AUTO) 0.3 % (0.2-1.0); HEMATOCRIT 41.4 % (42.0-54.0); HEMOGLOBIN 14.5 g/dL (13.5-18.0); LYMPHOCYTES # (AUTO) 0.7 X10^3/uL (1.3-2.9); LYMPHOCYTES % (AUTO) 8.6 % (21.0-51.0); MEAN CORPUSCULAR HEMOGLOBIN 32.6 pg (27.0-34.0); MEAN CORPUSCULAR VOLUME 93.2 fL (80.0-100.0); MEAN PLATELET VOLUME 9.4 fL (7.4-11.0); MONOCYTES # (AUTO) 0.6 x10^3/uL (0.3-0.8); MONOCYTES % (AUTO) 7.2 % (0.0-13.0); NEUTROPHILS # (AUTO) 6.8 x10^3/uL (2.2-4.8); NEUTROPHILS % (AUTO) 83.9 % (42.0-75.0); PLATELET COUNT 91 X10^3/uL (150.0-450.0); RED BLOOD COUNT 4.44 X10^6/uL (4.7-6.0); RED CELL DISTRIBUTION WIDTH 14.4 % (11.6-16.5); WHITE BLOOD COUNT 8.2 X10^3/uL (3.6-10.0)
[2024-08-23 05:10] LABS: ALANINE AMINOTRANSFERASE 57 Units/L (12-78); ALBUMIN 3.4 g/dL (3.4-5.0); ALKALINE PHOSPHATASE 105 Units/L (46-116); ASPARTATE AMINO TRANSFERASE 37 Units/L (15-37); BLOOD UREA NITROGEN 13 mg/dL (7-18); CALCIUM 9.3 mg/dL (8.5-10.1); CARBON DIOXIDE 27.4 mmol/L (21-32); CHLORIDE 99 mmol/L (98-107); COR NA(FOR HYPERGLY) 136 mmol/L (136-145); CREATININE 0.97 mg/dL (0.70-1.30); GLUCOSE 131 mg/dL (65-99); POTASSIUM 3.9 mmol/L (3.5-5.1); SODIUM 135 mmol/L (136-145); TOTAL PROTEIN 7.5 g/dL (6.4-8.2); eGFR NON BLACK RACES > 60 (>60)
[2024-08-23 08:41] VITALS: BP 169/89; PULSE 66; TEMP 97.3
[2024-08-23 10:17] VITALS: RESP 20
== END 2024-08-23 15:05 | disposition home or self-care (01) ==
LOC: ER 04:08 → MED/SURG 04:08
PROVIDERS: ADMIT Internal Medicine; ATTEND Internal Medicine
DX: Z16.29 Resistance to other single specified antibiotic; E03.8 Other specified hypothyroidism; E83.42 Hypomagnesemia; R94.31 Abnormal electrocardiogram [ECG] [EKG]; M51.369 Other intervertebral disc degeneration, lumbar region without mention of lumbar back pain or lower extremity pain; R70.0 Elevated erythrocyte sedimentation rate; K57.90 Diverticulosis of intestine, part unspecified, without perforation or abscess without bleeding; Z16.19 Resistance to other specified beta lactam antibiotics; R60.0 Localized edema; Y92.9 Unspecified place or not applicable; R79.82 Elevated C-reactive protein (CRP); R29.6 Repeated falls; I10 Essential (primary) hypertension; Z16.11 Resistance to penicillins; L03.115 Cellulitis of right lower limb; F10.220 Alcohol dependence with intoxication, uncomplicated; L03.116 Cellulitis of left lower limb; Z16.23 Resistance to quinolones and fluoroquinolones; Z29.89 Encounter for other specified prophylactic measures; D69.6 Thrombocytopenia, unspecified; B95.7 Other staphylococcus as the cause of diseases classified elsewhere; Z91.81 History of falling; S30.1XXA Contusion of abdominal wall, initial encounter; E80.6 Other disorders of bilirubin metabolism; K70.9 Alcoholic liver disease, unspecified; F10.239 Alcohol dependence with withdrawal, unspecified; Z16.12 Extended spectrum beta lactamase (ESBL) resistance; R00.0 Tachycardia, unspecified; K80.80 Other cholelithiasis without obstruction